=== PATIENT | male | born 1975 | race African-American/Black ===

== ENCOUNTER 2016-06-24 21:07 | Emergency (ER) | payer SELFPAY ==
[~2016-06-24] VITALS: Ht 185.4 cm; Wt 157.9 kg
[2016-06-24 21:51] LABS: BASOPHILS # (AUTO) 0.2 /CMM (0.0-0.2); DIFF TOTAL % 100 %; EOSINOPHILS % (AUTO) 0.3 % (0.0-6.0); HEMATOCRIT 42 % (39-51); HEMOGLOBIN 13.8 g/dL (13.5-17.5); LYMPHOCYTES % (AUTO) 9.7 % (20.0-44.0); MEAN CORPUSCULAR HEMOGLOBIN 27 PG (26.0-33.0); MEAN CORPUSCULAR HGB CONC 33 g/dl (31.0-36.0); MEAN CORPUSCULAR VOLUME 84 fL (80-96); MONOCYTES # (AUTO) 0.6 /CMM (0.1-1.30); MONOCYTES % (AUTO) 5.5 % (2.0-12.0); NEUTROPHILS # (AUTO) 8.9 /CMM (1.8-8.9); NEUTROPHILS % (AUTO) 82.5 % (43.0-81.0); PLATELET COUNT (AUTO) 286 /CMM (150-450); RED BLOOD CELL COUNT(AUTO) 5.03 MIL/uL (4.5-6.0); WHITE BLOOD COUNT (AUTO) 10.8 K/uL (4.3-11.0)
[2016-06-24 21:53] LABS: ADD UA MICROSCOPIC NO; KETONES,URINE Negative (NEGATIVE); LEUKOCYTE ESTERASE ,URINE Negative (NEGATIVE)
[2016-06-24] MEDS ORDERED: MORPHINE SULFATE INJ 4 MG/ML DISP.SYRIN ONE (21:56)
[2016-06-24] MEDS ORDERED: KETOROLAC TROMETHAMINE 15 MG/ML VIAL ONE (21:56)
[2016-06-24] MEDS ORDERED: ONDANSETRON HCL/PF 4 MG/2 ML VIAL ONE (21:56)
[2016-06-24] MEDS ORDERED: MORPHINE SULFATE INJ 2 MG/ML DISP.SYRIN IV ONE (22:00)
[2016-06-24] MEDS ORDERED: ONDANSETRON HCL/PF 4 MG/2 ML VIAL IVP ONE (22:00)
[2016-06-24] MEDS ORDERED: KETOROLAC TROMETHAMINE INJ 30 MG/ML VIAL IV ONE (22:00)
[2016-06-24 22:22] LABS: ALBUMIN 4.3 g/dL (3.4-5.0); BILIRUBIN,DIRECT 0.1 mg/dL (0.0-0.2); BILIRUBIN,TOTAL 0.7 mg/dL (0.2-1.0); CALCIUM, SERUM 9.5 mg/dL (8.5-10.1); CREATININE 1.4 mg/dL (0.6-1.3); INDIRECT BILIRUBIN 0.6 mg/dL (0.0-1.1); POTASSIUM 3.9 mmol/L (3.5-5.1); TOTAL PROTEIN, SERUM 8.7 g/dL (6.4-8.2)
[2016-06-25 00:28] VITALS: BP 130/72
== END 2016-06-25 00:28 | disposition home or self-care (01) ==
LOC: ER 21:08
DX: N13.2 Hydronephrosis with renal and ureteral calculous obstruction (principal); N20.0 Calculus of kidney; K57.30 Diverticulosis of large intestine without perforation or abscess without bleeding; K76.0 Fatty (change of) liver, not elsewhere classified
CPT/HCPCS: 36415; 74176; 80048; 80076; 81001; 83690; 85025; 96374; 96375; 99285; A4606; J1885; J2270; J2405; Z7610; 81000-TC

== ENCOUNTER 2018-01-27 22:17 | Emergency (ER) | payer MEDICAID, OTHER ==
[~2018-01-27] VITALS: Ht 188 cm; Wt 152.0 kg
[2018-01-28 00:48] VITALS: BP 150/81
== END 2018-01-28 01:05 | disposition home or self-care (01) ==
LOC: ER 22:23
DX: N23 Unspecified renal colic (principal)
CPT/HCPCS: A4606; Z7610

== ENCOUNTER 2021-04-29 13:12 | Emergency (ER) | payer OTHER ==
[~2021-04-29] VITALS: Ht 190.5 cm; Wt 120.7 kg
--- NOTE | 2021-04-29 13:49 | NUR ---
PT BIBSELF C/O FLU LIKE SYMPTOMS COUGH, WEAKNESS, CHILL, BODY ACHES, CHEST PAIN UPON RESPIRATION. TESTED FOR COVID OUTPATIENT ON 04/26 - STILL PENDING. TOLERATING R/A WELL WITH NO SOB
[2021-04-29] MEDS ORDERED: IV NS 0.9% 1,000 ML BAG IV ONE (14:30)
[2021-04-29] MEDS ORDERED: ACETAMINOPHEN ES 500 MG TABLET PO ONE (14:30)
[2021-04-29] MEDS ORDERED: IBUPROFEN 600 MG TABLET PO ONE (14:30)
[2021-04-29] MEDS ORDERED: ACETAMINOPHEN ES 500 MG TABLET ONE (14:41)
[2021-04-29] MEDS ORDERED: IBUPROFEN 600 MG TABLET ONE (14:42)
--- NOTE | 2021-04-29 15:13 | NUR ---
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
--- NOTE | 2021-04-29 15:17 | NUR ---
R HAND #20G S/L PATENT AND INTACT. COVID ANTIGEN SWAB AND INFLUENZA A+B SWAB, BLOOD COLLECTED AND SENT TO LAB
[2021-04-29 16:18] LABS: BASOPHILS % (AUTO) 0.3 % (0.0-2.0); HEMATOCRIT 40 % (39-51); LYMPHOCYTES # (AUTO) 0.7 K/uL (0.8-4.8); LYMPHOCYTES % (AUTO) 20.8 % (20.0-44.0); MEAN CORPUSCULAR HGB CONC 32 g/dl (31.0-36.0); MEAN CORPUSCULAR VOLUME 87 fL (80-96); MONOCYTES # (AUTO) 0.4 K/uL (0.1-1.30); MONOCYTES % (AUTO) 11.9 % (2.0-12.0); NEUTROPHILS # (AUTO) 2.1 K/uL (1.8-8.9); PLATELET COUNT (AUTO) 156 K/uL (150-450); RED BLOOD CELL COUNT(AUTO) 4.62 MIL/uL (4.5-6.0); WHITE BLOOD COUNT (AUTO) 3.2 K/uL (4.3-11.0)
[2021-04-29 16:37] LABS: CARBON DIOXIDE 26 mmol/L (21-32); CHLORIDE 105 mmol/L (98-107); CREATININE 1.2 mg/dL (0.6-1.3); GLUCOSE 88 mg/dL (74-106); POTASSIUM 3.5 mmol/L (3.5-5.1); SODIUM SERUM 143 mmol/L (136-145); UREA NITROGEN, BLOOD 16 mg/dL (7-18)
--- NOTE | 2021-04-29 19:22 | NUR ---
DISCHARGE INSTRUCTIONS GIVEN TO PT. PT LEFT IN STABLE CONDITION
[2021-04-29 19:23] VITALS: BP 112/62
== END 2021-04-29 19:24 | disposition home or self-care (01) ==
LOC: ER 13:13
DX: U07.1 COVID-19 (principal); J12.82 Pneumonia due to coronavirus disease 2019; R19.7 Diarrhea, unspecified; R94.31 Abnormal electrocardiogram [ECG] [EKG]; R06.02 Shortness of breath
CPT/HCPCS: 36415; 71045; 80048; 83880; 84484; 85025; 85730; 87426; 87804; 93005; 96360; 99285; C9803; J7030